=== PATIENT | male | born 2000 | race Caucasian/White ===

== ENCOUNTER 2020-11-25 06:40 | Emergency (ER) | payer BC, SELFPAY ==
[2020-11-25 07:44] VITALS: BP 120/64; PULSE 87; RESP 18; TEMP 37.5; O2SAT 99; BMI 29.9
--- NOTE | 2020-11-25 08:00 | ED.SKABFB ---
HPI - Skin/Abscess/Foreign Bdy General Chief complaint: Skin/Abscess/Foreign Body Stated complaint: wound check (stick bulging from side) Time Seen by Provider: 11/25/20 07:47 Source: patient Mode of arrival: ambulatory Limitations: no limitations History of Present Illness MD complaint: lesion (stick protruding from side that has been there since September after a hike but the stick just came out in the last couple of days) Onset (ago): day(s) (2) Tetanus up to date: yes Location: generalized (L flank) Severity: moderate Quality: aching Pain Consistency: constant Relieving factors: none Exacerbating factors: none Context: other (FB insertion into left flank - after hiking known FB has been on doxy this week, seen by wound care center - came here due to the stick has now popped out) Associated symptoms: other (drainage) Treatments prior to arrival: bandages and antibiotic Related Data Previous Rx's Medication Instructions Recorded cephalexin 500 mg capsule 500 mg PO BID 7 Days #14 cap 11/25/20 Allergies Allergy/AdvReac Type Severity Reaction Status Date / Time amoxicillin Allergy Hives Verified 11/25/20 07:49 Review of Systems Review of Systems: Constitutional : No Fever, No Chills, Cardiovascular : No Chest Pain, No SOB Respiratory : No Dyspnea Gastrointestinal : No abdominal pain Musculoskeletal : No Joint Swelling Skin : No rash, positive skin puncture wound Neuro : No Weakness, No Numbness PMFSH Past Medical History Attestation statement: The following information was validated with the patient. Medical History No known health problems Social History Social History (Updated 11/25/20 @ 08:14 by Bettye Paul DO) Patient Tobacco Use Status: Never used Tobacco Advance Directives: No Advance Directives Information Provided: No Physical Exam Vital Signs: Vital Signs: Last Vital Signs Temp 99.5 F 11/25/20 07:44 Pulse 87 11/25/20 07:44 Resp 18 11/25/20 07:44 BP 120/64 11/25/20 07:44 Pulse Ox 99 11/25/20 07:44 Body Mass Index 29.9 Appearance: Alert. Oriented X3. No acute distress. Eyes: Pupils equal, round and reactive to light. ENT: Pharynx normal. Neck: Normal inspection. Neck supple. CVS: Normal heart rate and rhythm. Pulses normal. Respiratory: No respiratory distress. Breath sounds normal. Abdomen: Soft and nontender. Back: L flank protruding stick about 4 inches long I can palpate it under the skin it is superficial, surrounding area is not infected though the stick has yellow drainage on it Skin: Skin warm and dry. Normal skin color. Normal skin turgor. Extremities: No lower extremity edema. No calf ttp Neuro: Oriented X 3. No motor deficit. No sensory deficit. Course Course Course Narrative: after removal copious irrigation performed with saline and betadine, track investigated with sterile glove and the wound is superficial covered with sterile dry dressing Procedures Foreign Body Removal Time Out Performed: yes Site: left (flank) Description of foreign body: other (wood splinter) Sedation/Analgesia: none Technique: manual removal Confirmed by:: direct visualization Complications: none Post-procedure exam: awake, alert Neurovascular: normal distal pulse Discharge Plan Discharge Clinical Impression: Foreign body in skin, Puncture wound Patient Disposition: Home, Self-Care Instructions: Soft Tissue Foreign Body (ED), Puncture Wound (ED) Additional Instructions: return to ED for any worsening symptoms or concerns it is okay to shower only, wound will need to close by secondary intention, , monitor for redness, fevers, yellow drainage follow up with the wound clinic continue doxycycline Prescriptions: New cephalexin 500 mg capsule 500 mg PO BID 7 Days Qty: 14 RF: 0 Stand Alone Forms: Work/School Release
[2020-11-25] MEDS: cephALEXin 500 MG CAPSULE PO (08:32)
== END 2020-11-25 09:18 | disposition home or self-care (01) ==
PROVIDERS: Emergency Provider Emergency Medicine
DX: S31.149A Puncture wound of abdominal wall with foreign body, unspecified quadrant without penetration into peritoneal cavity, initial encounter (principal); R10.9 Unspecified abdominal pain; W26.9XXA Contact with unspecified sharp object(s), initial encounter; Y93.9 Activity, unspecified; Y92.9 Unspecified place or not applicable; Y99.9 Unspecified external cause status; Z79.899 Other long term (current) drug therapy
CPT/HCPCS: 10120; 99282; 99283

== ENCOUNTER 2022-03-23 19:48 | Emergency (ER) | payer OTHER, BC, SELFPAY ==
--- NOTE | ~2022-03-23 | XR_ITS ---
EXAMINATION: RIGHT KNEE, RIGHT WRIST CLINICAL INFORMATION: [facility] COMPARISON: None TECHNIQUE: 4 views right knee, 4 views right wrist FINDINGS: No significant bone, joint or soft tissue abnormalities are seen. XR/XR knee RT 4V IMPRESSION: Unremarkable examination. No evidence of a traumatic osseous injury involving the right knee or right wrist.
--- NOTE | ~2022-03-23 | CT_ITS ---
EXAMINATION: NONCONTRAST HEAD CT NONCONTRAST CERVICAL SPINE CT INDICATION INFORMATION: Headache and neck pain COMPARISON: None TECHNIQUE: Separate noncontrast CT examinations of the head and cervical spine were performed. Coronal and sagittal images were created for each examination at the technologist workstation. This CT examination was performed using dose optimization techniques as appropriate, variously including the following: *Automated exposure control *Adjustment of mA and/or kV according to patient size (this includes techniques or standardized protocols for targeted exams where dose is matched to indication/reason for exam; i.e. extremities or head) *Use of iterative reconstruction technique DLP: 1489 mGy-cm FINDINGS: HEAD: No intra or extra-axial fluid collection, hemorrhage, or mass. No ventriculomegaly. No midline shift or herniation. Basal cisterns are patent. Verdin-white matter differentiation is maintained. No territorial encephalomalacia. No significant volume loss. There is no abnormal attenuation within the brain parenchyma. No calvarial fracture or soft tissue abnormality. The mastoid air cells and visualized portions of the paranasal sinuses are well aerated. CERVICAL SPINE: Alignment: Mild straightening of the normal cervical lordosis. No subluxation. Vertebra: No acute fracture. No prevertebral soft tissue swelling. Degenerative disc disease: No significant. Preserved intervertebral disc heights. Other findings: No cervical lymphadenopathy. Visualized major salivary glands and thyroid gland are unremarkable. Visualized lung apices are clear. CT/CT head/brain wo IV con IMPRESSION: 1. No intracranial hemorrhage or calvarial fracture. 2. No traumatic subluxation or acute cervical spine fracture.
--- NOTE | ~2022-03-23 | CT_ITS ---
EXAMINATION: CT CHEST, ABDOMEN AND PELVIS WITH CONTRAST. CLINICAL INFORMATION: Trauma. COMPARISON: No pertinent prior studies are available for comparison. TECHNIQUE: Multidetector volumetric imaging was performed from the thoracic inlet through the pubic symphysis following the administration of: Oral contrast: No Intravenous contrast: 85 mL Omnipaque 350 No contrast reaction reported Sagittal and coronal reformatted images were obtained on the technologist workstation. In addition, thin section, high resolution reconstruction, targeted reformatted images through the thoracic and lumbar spine were obtained with coronal and sagittal high resolution reformatted images as well. This CT examination was performed using dose optimization techniques as appropriate, variously including the following: *Automated exposure control *Adjustment of mA and/or kV according to patient size (this includes techniques or standardized protocols for targeted exams where dose is matched to indication/reason for exam; i.e. extremities or head) *Use of iterative reconstruction technique Total exam dose-length product 910 mGy-cm FINDINGS: CHEST: VASCULAR: The aorta is normal; no evidence of dissection, aneurysm, or traumatic aortic injury. The central pulmonary arteries enhance normally. AORTIC ISTHMUS: Normal. MEDIASTINUM: No mediastinal fluid or hematoma. No hilar or mediastinal lymphadenopathy. LUNG: No nodules, mass, or focal consolidation. PLEURA: No pleural effusion. No pneumothorax. No pleural mass or thickening. CHEST WALL/AXILLA: Unremarkable. ABDOMEN/PELVIS : LIVER : The liver is enlarged measuring 21 cm in greatest length but normal in shape. Attenuation is probably decreased but difficult to ascertain after IV contrast. No focal hepatic lesion or biliary ductal dilatation is present. GALLBLADDER, AND BILIARY TREE The gallbladder is unremarkable with no evidence of radiopaque gallstones, gallbladder wall thickening, or obvious pericholecystic inflammatory changes. PANCREAS: Normal; no mass or surrounding fluid. SPLEEN: Spleen is enlarged at 14.7 cm. ADRENAL GLANDS: Normal; no mass. KIDNEYS AND URETERS: The kidneys are normal in size, shape, and attenuation. No hydronephrosis, hydroureter, or calculi. URINARY BLADDER: No focal mass or wall thickening seen. No bladder calculi. GASTROINTESTINAL TRACT: Stomach and small bowel non-dilated. No colonic wall thickening or pericolonic inflammatory changes. Normal appendix. VASCULAR STRUCTURES: There is no evidence of aortic or iliac injury. The inferior vena cava is intact. ACTIVE BLEEDING: No. LYMPH NODES: No lymphadenopathy. The aorta is unremarkable. PELVIC VISCERA: Unremarkable. FREE FLUID: None. ABDOMINAL WALL: No significant hernia is appreciated. OSSEOUS STRUCTURES : No clavicle or scapula fracture. No displaced rib fracture seen. No sternal fracture seen. Normal sagittal alignment of the thoracic and lumbar spine. Vertebral body and disc heights are maintained; no compression fracture. Posterior elements intact. No sacral or pelvic fracture, The visualized hips are intact. CT/CT abdomen pelvis w IV con IMPRESSION: 1. No evidence of a traumatic injury in the chest, abdomen or pelvis. 2. Incidental note made of hepatosplenomegaly.
--- NOTE | ~2022-03-23 | CT_ITS ---
EXAMINATION: NONCONTRAST HEAD CT NONCONTRAST CERVICAL SPINE CT INDICATION INFORMATION: Headache and neck pain COMPARISON: None TECHNIQUE: Separate noncontrast CT examinations of the head and cervical spine were performed. Coronal and sagittal images were created for each examination at the technologist workstation. This CT examination was performed using dose optimization techniques as appropriate, variously including the following: *Automated exposure control *Adjustment of mA and/or kV according to patient size (this includes techniques or standardized protocols for targeted exams where dose is matched to indication/reason for exam; i.e. extremities or head) *Use of iterative reconstruction technique DLP: 1489 mGy-cm FINDINGS: HEAD: No intra or extra-axial fluid collection, hemorrhage, or mass. No ventriculomegaly. No midline shift or herniation. Basal cisterns are patent. Verdin-white matter differentiation is maintained. No territorial encephalomalacia. No significant volume loss. There is no abnormal attenuation within the brain parenchyma. No calvarial fracture or soft tissue abnormality. The mastoid air cells and visualized portions of the paranasal sinuses are well aerated. CERVICAL SPINE: Alignment: Mild straightening of the normal cervical lordosis. No subluxation. Vertebra: No acute fracture. No prevertebral soft tissue swelling. Degenerative disc disease: No significant. Preserved intervertebral disc heights. Other findings: No cervical lymphadenopathy. Visualized major salivary glands and thyroid gland are unremarkable. Visualized lung apices are clear. CT/CT cervical spine wo IV con IMPRESSION: 1. No intracranial hemorrhage or calvarial fracture. 2. No traumatic subluxation or acute cervical spine fracture.
--- NOTE | ~2022-03-23 | XR_ITS ---
EXAMINATION: RIGHT KNEE, RIGHT WRIST CLINICAL INFORMATION: [facility] [place] COMPARISON: None TECHNIQUE: 4 views right knee, 4 views right wrist FINDINGS: No significant bone, joint or soft tissue abnormalities are seen. XR/XR wrist RT min 3V IMPRESSION: Unremarkable examination. No evidence of a traumatic osseous injury involving the right knee or right wrist.
[2022-03-23 19:56] VITALS: BP 146/60; PULSE 92; RESP 20; TEMP 37.1; O2SAT 98; BMI 30.4
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
[2022-03-23 20:23] LABS: MANUAL DIFF FLAG NO
[2022-03-23 20:24] LABS: Basophils Percent Auto 0.2 % (0-2); Eosinophils Absolute Auto 0.1 X10*3/uL (0.0-0.4); Eosinophils Percent Auto 0.4 % (0-4); Hematocrit 45.5 % (42.0-52.0); Hemoglobin 16.5 g/dl (14.0-18.0); Imm Gran Abs Auto 0.06 X10*3/uL (0.00-0.03); Imm Gran Pct Auto 0.5 % (0.0-0.4); Lymphocytes Absolute Auto 1.4 X10*3/uL (1.2-4.9); Lymphocytes Percent Auto 10.7 % (20-40); Mean Corpuscular HGB Conc 36.3 g/dl (31.0-36.0); Mean Corpuscular Hemoglobin 30.4 pg (27.0-33.0); Mean Corpuscular Volume 83.9 fL (80.0-98.0); Mean Platelet Volume 10.3 fL (9.4-12.4); Monocytes Absolute Auto 0.7 X10*3/uL (0.1-1.2); Monocytes Percent Auto 5.4 % (2-11); Neutrophils Percent Auto 82.8 % (45-73); Platelet Count 209 X10*3/uL (160-400); Red Blood Count 5.42 X10*6/uL (4.60-5.80); White Blood Count 13.3 X10*3/uL (4.8-10.8)
[2022-03-23 20:34] LABS: Amphetamine Screen Urine Not Detected (Not Detect); Barbiturates, Urine Not Detected (Not Detect); Benzodiazepines Screen Urine Not Detected (Not Detect); Cannabinoid Screen Urine Not Detected (Not Detect); Cocaine Screen Urine Not Detected (Not Detect); Fentanyl, urine Not Detected (Not Detect); Opiate Screen Urine Not Detected (Not Detect); Phencyclidine Screen Urine Not Detected (Not Detect)
[2022-03-23] MEDS: iohexoL 350 MG/ML 100 ML INFUS..BTL IV (20:59)
[2022-03-23 21:01] LABS: Alanine Aminotransferase 45 U/L (0-40); Albumin Level 4.9 g/dL (3.5-5.0); Alkaline Phosphatase 61 U/L (39-117); Anion Gap 16 (12-20); Aspartate Amino Transferase 37 U/L (5-37); Bilirubin Direct < 0.2 mg/dL (0.0-0.5); Bilirubin Total 0.7 mg/dL (0.0-1.0); Blood Urea Nitrogen 9 mg/dL (9-16); Calcium 9.9 mg/dL (8.4-10.2); Carbon Dioxide 22 mmol/L (22-29); Chloride 104 mmol/L (96-108); Creatinine Clr Calc Pharmacy 144.2; Estimated Glomerular Filt Rate > 60; Ethanol < 10 mg/dL; Glucose Random 101 mg/dL (60-115); Magnesium 1.7 mg/dL (1.6-2.6); Potassium 4.3 mmol/L (3.3-5.1); Sodium 138 mmol/L (135-145); Total Protein 8.4 g/dL (6.5-8.0)
== END 2022-03-23 21:49 | disposition home or self-care (01) ==
PROVIDERS: Physician Assistant; Emergency Provider Internal Medicine
DX: S00.93XA Contusion of unspecified part of head, initial encounter (principal); S13.4XXA Sprain of ligaments of cervical spine, initial encounter; R51.9 Headache, unspecified; M54.2 Cervicalgia; R10.9 Unspecified abdominal pain; M54.6 Pain in thoracic spine; M25.561 Pain in right knee; M25.531 Pain in right wrist; V53.5XXA Driver of pick-up truck or van injured in collision with car, pick-up truck or van in traffic accident, initial encounter; Y93.9 Activity, unspecified; Y92.410 Unspecified street and highway as the place of occurrence of the external cause; Y99.0 Civilian activity done for income or pay; Z79.899 Other long term (current) drug therapy
CPT/HCPCS: 36415; 70450; 71260; 72125; 73110; 73564; 74177; 80048; 80076; 80307; 82077; 83735; 85025; 99282; 99284; Q9967

== ENCOUNTER → 2022-08-11 07:35 | Outpatient (BNVA) | payer SELFPAY | PROVIDERS: Visit Provider Internal Medicine ==

== ENCOUNTER → 2024-07-19 11:55 | Outpatient (BNVA) | payer SELFPAY | PROVIDERS: Visit Provider Physician Assistant | DX: Z02.79 Encounter for issue of other medical certificate (principal) ==